=== PATIENT | female | born 1980 | race Caucasian/White ===

== ENCOUNTER 2017-11-10 09:00 | Emergency (ER) | payer OTHER ==
[2017-11-10 09:11] VITALS: O2SAT 98
[2017-11-10] MEDS ORDERED: Albuterol 0.083% Inhal Sol (2.5 mg/3 mL) UD IH STA ×2 (09:59→10:30)
[2017-11-10] MEDS ORDERED: Albuterol-Ipratrop 3 mg / 0.5 (3 ml) UD ONE (10:20)
--- NOTE | 2017-11-10 11:29 | C.PDOC ---
History Of Present Illness 37 yr old female presents to the ER with complaints of runny nose, sore throat and dry cough for 2 weeks but states yesterday she started having fever, body aches, headaches, light headed, nausea and vomiting, with SOB at night when laying flat. Patient states her was initially sick. Patient denies history of asthma, chest pain, abdominal pain, diarrhea, dysuria, weakness or numbness. Time Seen by Provider: 11/10/17 09:30 Chief Complaint (Nursing): Flu-like Symptoms History Per: Patient History/Exam Limitations: no limitations Onset/Duration Of Symptoms: Days Sick Contacts (Context): Family Member(s) () Past Medical History Reviewed: Historical Data, Nursing Documentation, Vital Signs Vital Signs: Last Vital Signs Temp 100.2 F H 11/10/17 09:07 Pulse 116 H 11/10/17 09:07 Resp 20 11/10/17 09:07 BP 111/76 11/10/17 09:07 Pulse Ox 98 11/10/17 11:32 - Medical History PMH: HTN, Hyperthyroidism Family History: States: No Known Family Hx - Social History Hx Tobacco Use: No Hx Alcohol Use: No Hx Substance Use: No - Immunization History Hx Tetanus Toxoid Vaccination: Yes Hx Influenza Vaccination: No Hx Pneumococcal Vaccination: No Review Of Systems Except As Marked, All Systems Reviewed And Found Negative. Constitutional: Positive for: Fever (subjective), Other (+ body aches) ENT: Positive for: Throat Pain (sore throat) Cardiovascular: Positive for: Light Headedness. Negative for: Chest Pain Respiratory: Positive for: Cough (dry), Shortness of Breath (when laying flat at night) Gastrointestinal: Positive for: Nausea, Vomiting. Negative for: Abdominal Pain , Diarrhea Genitourinary: Negative for: Dysuria Neurological: Positive for: Headache. Negative for: Weakness, Numbness Physical Exam - Physical Exam Appears: Non-toxic, In Acute Distress (uncomfortable) Skin: Warm, Dry, No Rash Eye(s): bilateral: Normal Inspection, PERRL, EOMI Ear(s): Bilateral: Normal Oral Mucosa: Moist Lips: Normal Appearing Throat: Erythema, No Exudate, Other (no tonsil swelling, speaking in full sentences) Neck: Normal, Normal ROM, Supple Cardiovascular: Rhythm Regular (tachy) Respiratory: Decreased Breath Sounds (mild), No Rhonchi, No Wheezing Gastrointestinal/Abdominal: Normal Exam, Soft, No Tenderness, No Guarding, No Rebound Extremity: Normal ROM, No Swelling Neurological/Psych: Oriented x3, Normal Speech ED Course And Treatment O2 Sat by Pulse Oximetry: 98 (RA) Pulse Ox Interpretation: Normal - Radiology CXR: Interpreted by Me, Viewed By Me CXR Interpretation: Yes: No Acute Disease. No: Infiltrates Progress Note: PLAN: CXR, Albuterol IH, Tamiflu PO, Tyelnol PO, Prednisone PO & Reeval. Patient is wheezing and given prednisone. CXR was done to rule out PE. Disposition Counseled Patient/Family Regarding: Diagnosis, Need For Followup, Rx Given - Disposition Referrals: [facility] [Outside] Disposition: HOME/ ROUTINE Disposition Time: 11:30 Condition: STABLE Additional Instructions: FOLLOW UP WITH YOUR DOCTOR/CLINIC IN 1-2 DAYS USE MEDICATIONS DIRECTED DRINK PLENTY OF FLUIDS RETURN TO ER IF SYMPTOMS WORSEN Prescriptions: Albuterol HFA [Ventolin HFA 90 mcg/actuation (8 g)] 0.09 mg IH Q4 PRN #1 puff PRN Reason: Wheezing Naproxen 375 mg PO BID PRN #20 tablet PRN Reason: pain Oseltamivir Phosphate [Tamiflu] 75 mg PO BID #10 capsule predniSONE [predniSONE Tab] 40 mg PO DAILY #6 tab Instructions: Viral Syndrome (ED), Bronchospasm (DC) Forms: [facility] (Serbian), Work Excuse Print Language: SAUDI ARABIAN - Clinical Impression Clinical Impression: Influenza-like illness, Bronchospasm - Scribe Statement The provider has reviewed the documentation as recorded by the Carlos Adame Provider Attestation: All medical record entries made by the Carlos were at my direction and personally dictated by me. I have reviewed the chart and agree that the record accurately reflects my personal performance of the history, physical exam, medical decision making, and the department course for this patient. I have also personally directed, reviewed, and agree with the discharge instructions and disposition.
[2017-11-10 11:54] VITALS: BP 110/72; PULSE 106; RESP 22; TEMP 99
--- NOTE | 2017-11-10 11:56 | RAD ---
HISTORY: PRODUCTIVE COUGH, FEVER COMPARISON: None available. TECHNIQUE: Chest PA and lateral FINDINGS: Examination limited by habitus. LUNGS: No focal consolidation. Please note that chest x-ray has limited sensitivity for the detection of pulmonary masses. PLEURA: No significant pleural effusion identified. No definite pneumothorax . CARDIOVASCULAR: The cardiomediastinal silhouette appears within normal limits of size. OSSEOUS STRUCTURES: No acute osseous abnormality identified. VISUALIZED UPPER ABDOMEN: Unremarkable. OTHER FINDINGS: None. IMPRESSION: No focal consolidation identified.
== END 2017-11-10 11:53 | disposition home or self-care (01) ==
LOC: C.ER 09:00
DX: J11.1 Influenza due to unidentified influenza virus with other respiratory manifestations (principal); J98.01 Acute bronchospasm; I10 Essential (primary) hypertension; E05.90 Thyrotoxicosis, unspecified without thyrotoxic crisis or storm